=== PATIENT | male | born 1955 | race Caucasian/White ===

== ENCOUNTER 2017-01-05 13:51 | Outpatient (CLI) | payer MEDICARE | END 2017-01-05 13:52 | disposition home or self-care (01) | LOC: RT.S 13:51 → SWC 13:51 | PROVIDERS: ATTEND Nurse Practitioner Family | DX: I25.119 Atherosclerotic heart disease of native coronary artery with unspecified angina pectoris (principal) | CPT/HCPCS: 93005 ==

== ENCOUNTER 2017-01-08 08:07 | Outpatient (CLI) | payer MEDICARE | END 2017-01-08 08:08 | disposition home or self-care (01) | DX: I25.10 Atherosclerotic heart disease of native coronary artery without angina pectoris (principal); I20.9 Angina pectoris, unspecified ==

== ENCOUNTER 2017-01-11 10:46 | Outpatient (CLI) | payer MEDICARE | END 2017-01-11 10:47 | disposition home or self-care (01) | DX: D61.818 Other pancytopenia (principal); K70.30 Alcoholic cirrhosis of liver without ascites ==

== ENCOUNTER 2017-02-16 14:26 | Outpatient (CLI) | payer MEDICARE ==
[2017-02-16 14:42] LABS: BASOPHILS # (AUTO) 0.1 10^3/uL (0.0-0.1); EOSINOPHILS # (AUTO) 0.2 10^3/uL (0.0-0.7); HGB - HEMOGLOBIN 11.3 g/dL (14.0-18.0); LYMPHOCYTES # (AUTO) 0.8 10^3/uL (1.5-3.5); MONOCYTES # (AUTO) 0.5 10^3/uL (0.0-1.0); NEUTROPHILS % (AUTO) 74.2 %; RED CELL DISTRIBUTION WIDTH 14.4 % (12.0-15.0)
[2017-02-16 14:46] LABS: EOSINOPHILS % (AUTO) 2.9 %; HCT - HEMATOCRIT 31.6 % (42.0-52.0); LYMPHOCYTES % (AUTO) 14.1 %; MEAN CORPUSCULAR HEMOGLOBIN 35.1 pg (27.0-31.0); MEAN CORPUSCULAR HGB CONC 35.8 g/dL (32.0-36.0); MEAN PLATELET VOLUME 8.2 fL (7.4-11.4); MONOCYTES % (AUTO) 7.8 %; NEUTROPHILS # (AUTO) 4.4 10^3/uL (1.5-6.6); RED BLOOD COUNT 3.23 10^6/uL (4.70-6.10)
[2017-02-16 15:27] LABS: PLATELET ESTIMATE, MANUAL DECREASED (<130,000) (NORMAL); PLATELET MORPHOLOGY NORMAL APPEARANCE (NORMAL)
== END 2017-02-16 14:27 | disposition home or self-care (01) ==
LOC: LAB 14:26
PROVIDERS: ATTEND Internal Medicine
DX: D69.6 Thrombocytopenia, unspecified (principal)
CPT/HCPCS: 36415; 85025

== ENCOUNTER 2017-03-08 10:31 | Outpatient (CLI) | payer MEDICARE ==
--- NOTE | 2017-03-08 17:02 | Nuclear Medicine Report ---
EXAM: SINGLE-ISOTOPE PHARMACOLOGICAL STRESS TEST WITH ADENOSINE. SINGLE-ISOTOPE AND SAME-DAY REST/STRESS MY OCARDIAL PERFUSION SCANS WITH TOMOGRAPHIC IMAGING, QUANTITATIVE ANALYSIS, WALL MOTION ANALYSIS AND CA LCULATION OF EJECTION FRACTION. EXAM DATE: 03/08/2017 11:37 AM. CLINICAL HISTORY: Angina pectoris, coronary artery disease. COMPARISON: None. TECHNIQUE: Following the intravenous administration of 10.1 mCi of Tc-99m sestamibi, a rest myocardia l perfusion scan was done with tomography. Motion correction was applied when appropriate. After a delay of several hours on the same day, a pharmacological stress was performed with the infus ion of adenosine. According to protocol, 41.9 mCi of Tc-99m sestamibi was injected for stress myocard ial perfusion scan. Stress myocardial perfusion was done with tomography without attenuation correcti on. Motion correction was applied when appropriate. Gated tomographic images were obtained for wall motion analysis and computation of left ventricular ejection fraction. FINDINGS: There is a moderate severity, reversible perfusion defect involving the inferolateral segment from ba se to apex. Cardiac chamber size does not alter between rest and stress images. There is normal wall motion. The left ventricular end-diastolic volume is 147 cc. The left ventricular end-systolic volume is 62 c c. The left ventricular ejection fraction is calculated to be 58%. IMPRESSION: 1. Reversible perfusion defect involving the inferolateral wall from base to apex. 2. Normal left ventricular ejection fraction of 58%. 3. Normal segmental and global wall motion. 4. Normal left ventricular cavity size, no change with stress. [facility] Referring Provider Line: [phone] SITE ID: [id number]
[2017-03-08 19:03] VITALS: BP 128/66
--- NOTE | 2017-03-12 07:48 | CARDIAC PROCEDURE NOTE ---
DATE OF SERVICE: 03/08/2017 00:00:00 PRIMARY CARE PROVIDER: CHRISTIAN Black PROCEDURE: Pharmacologic stress test. PROCEDURE SYMPTOMS: Chest pain and dyspnea on exertion. CARDIAC RISK FACTORS INCLUDE: Known CAD and tobacco dependence. PREVIOUS CARDIAC PROCEDURES: Coronary angiograms and pharmaceutical stress test. CLINICAL HISTORY: A 61-year-old male with known coronary artery disease. INITIAL RESTING VITAL SIGNS: Blood pressure 128/66, heart rate 63, height 70 inches, weight 145 poun ds, BMI 20.7. PROCEDURE AND FINDINGS: Patient identity and date verified, consent signed. Pharmacologic str ess testing was performed with Lexiscan at a dose of 0.4 mg over 10 seconds. The heart increased to 87 beats per minute from the infusion, blood pressure response was normal during the stress procedure , and patient developed symptoms which included shortness of air and chest pain. Symptoms resolved s pontaneously in a few minutes. Resting ECG demonstrated normal sinus rhythm with no ST or T-wave namita nges. Maximum ST segment depression with stress was less than 0.5 and upsloping. There was a rare P VC. FINAL IMPRESSIONS 1. Negative electrocardiogram for ischemia in the setting of vasodilator stress. 2. Negative stress test for angina. 3. Rare PVC. DISCUSSION AND RECOMMENDATIONS: Await myocardial perfusion report. JOB #: [id number] EXT JOB #:[id number]
== END 2017-03-08 10:32 | disposition home or self-care (01) ==
LOC: DI 10:31
PROVIDERS: ATTEND Nurse Practitioner Family
DX: I25.119 Atherosclerotic heart disease of native coronary artery with unspecified angina pectoris (principal); I99.8 Other disorder of circulatory system
CPT/HCPCS: 78452; 93017; A9500

== ENCOUNTER 2018-01-26 03:04 | Outpatient (CLI) | payer MEDICARE | END 2018-01-26 03:05 | disposition critical access hospital (66) | LOC: EMS 03:04 | PROVIDERS: ATTEND Surgery | DX: R07.9 Chest pain, unspecified (principal) ==

== ENCOUNTER 2018-01-26 03:20 | Emergency (ER) | payer MEDICARE ==
--- NOTE | 2018-01-26 03:29 | ED Physician Documentation ---
PD HPI CHEST PAIN - Stated complaint Stated Complaint: CP - Chief complaint Chief Complaint: Cardiac - History obtained from History obtained from: Patient - History of Present Illness Timing - onset: Enter time (20:00), Today Timing - onset during: Light activity (playing pool) Timing - duration: Hours Timing - details: Gradual onset, Waxing and waning Pain level max: 10 Pain level now: 6 Quality: Pain Location: Substernal Radiation: Left upper extremity Improved by: Rest Worsened by: Exertion Associated symptoms: Shortness of air. No: Diaphoresis Recently seen: Not recently seen - Additional information Additional information: c/o chest pain. he has CAD history, and had stable angina requiring multiple doses of NTG daily up until April 2017 when he had coronary artery stents placed. (previous to this, he has had CABG). he says he did not need nitroglycerin again until a few weeks ago, when he gradually started having exertional chest pains again. These have become increasingly frequent and intense, and tonight at 8 PM, he developed severe midline chest pain radiating to LUE. Medics arrived, gave 325mg ASA and SLNTG x 3. after the third NTG, patient's pain had mostly subsided. Review of Systems Constitutional: reports: Reviewed and negative Eyes: reports: Reviewed and negative Ears: reports: Reviewed and negative Nose: reports: Reviewed and negative Throat: reports: Reviewed and negative Cardiac: reports: Chest pain / pressure. denies: Palpitations, Calf pain Respiratory: denies: Dyspnea, Cough GI: reports: Reviewed and negative : denies: Dysuria, Frequency Skin: reports: Reviewed and negative Musculoskeletal: reports: Reviewed and negative Neurologic: reports: Reviewed and negative PD PAST MEDICAL HISTORY - Past Medical History Cardiovascular: Hypertension, High cholesterol, Coronary artery disease, MT, Murmur Respiratory: COPD GI: Cirrhosis - Past Surgical History Ortho: Spine surgery Cardiovascular: CABG, Vascular surgery - Present Medications Home Medications: Ambulatory Orders Medication Instructions Recorded Confirmed Aspirin 81 mg PO DAILY 01/26/18 Carvedilol [Coreg] 01/26/18 Clopidogrel [Plavix] 50 mg PO DAILY 01/26/18 Losartan [Cozaar] 01/26/18 - Allergies Allergies/Adverse Reactions: Allergies Allergy/AdvReac Type Severity Reaction Status Date / Time morphine AdvReac Hives Verified 01/26/18 03:29 - Living Situation Living Arrangement: reports: At home - Social History Does the pt smoke?: No PD ED PE NORMAL - Vitals Vital signs reviewed: Yes - General General: Alert and oriented X 3, No acute distress, Well developed/nourished - Neck Neck: Supple, no meningeal sign - Cardiac Cardiac: RRR - Respiratory Respiratory: No respiratory distress, Clear bilaterally - Abdomen Abdomen: Soft, Non tender - Back Back: No CVA TTP - Derm Derm: Normal color, Warm and dry - Extremities Extremities: No edema - Neuro Neuro: Alert and oriented X 3 PD ED PE EXPANDED - Cardiac Cardiac: Murmur Present (2/6 ИРИНА) Results - Vitals Vitals: Vital Signs - 24 hr 01/26/18 01/26/18 01/26/18 03:26 03:30 03:33 Temperature 37.0 C Heart Rate 100 81 86 Respiratory 22 18 18 Rate Blood Pressure 145/63 H 174/85 H O2 Saturation 88 L 97 95 01/26/18 01/26/18 01/26/18 04:02 04:14 04:50 Temperature Heart Rate 95 93 100 Respiratory 28 H 27 H 27 H Rate Blood Pressure 175/101 H 177/94 H 171/95 H O2 Saturation 91 L 93 83 L 01/26/18 01/26/18 01/26/18 04:54 05:10 05:13 Temperature Heart Rate 99 Respiratory 20 Rate Blood Pressure 173/101 H 165/101 H O2 Saturation 87 L 88 L 01/26/18 05:14 Temperature Heart Rate Respiratory Rate Blood Pressure 153/94 H O2 Saturation 88 L Oxygen O2 Source Non-rebreather mask Oxygen Flow Rate 10 - EKG (time done) #1 Rate: Rate (enter#) (84) Rhythm: NSR [place]: Normal Intervals: Normal [place] QRS: LVH Ischemia: ST depression (II, III, aVF, V4-V6) #2 Rate: Rate (enter#) (95) Rhythm: NSR [place]: Normal Intervals: Normal AL QRS: LVH Ischemia: ST depression (V4-V6, inferior leads) Compare to prior EKG: Changed from prior EKG (more pronounced ST depressions) - Labs Labs: Laboratory Tests 01/26/18 01/26/18 01/26/18 03:30 03:30 03:30 WBC 8.7 RBC 3.71 L Hgb 12.6 L Hct 35.9 L MCV 96.7 H MCH 33.8 H MCHC 35.0 RDW 15.0 Plt Count 36 L MPV 7.6 Neut # (Auto) 7.2 H Lymph # (Auto) 0.7 L Ransom # (Auto) 0.6 Eos # (Auto) 0.2 Baso # (Auto) 0.1 Absolute Nucleated RBC 0.00 Nucleated RBC % 0.0 PT 13.2 H INR 1.2 APTT 36.1 H Sodium 137 Potassium 4.2 Chloride 106 Carbon Dioxide 23 Anion Gap 8.0 BUN 21 H Creatinine 1.3 H Estimated GFR (MDRD) 56 L Glucose 125 H Calcium 8.9 Total Bilirubin 0.7 AST 18 ALT 13 Alkaline Phosphatase 91 Troponin I Total Protein 7.8 Albumin 4.6 Globulin 3.2 Albumin/Globulin Ratio 1.4 Lipase 39 01/26/18 03:30 WBC RBC Hgb Hct MCV MCH MCHC RDW Plt Count MPV Neut # (Auto) Lymph # (Auto) Ransom # (Auto) Eos # (Auto) Baso # (Auto) Absolute Nucleated RBC Nucleated RBC % PT INR APTT Sodium Potassium Chloride Carbon Dioxide Anion Gap BUN Creatinine Estimated GFR (MDRD) Glucose Calcium Total Bilirubin AST ALT Alkaline Phosphatase Troponin I < 0.04 Total Protein Albumin Globulin Albumin/Globulin Ratio Lipase - Rads (name of study) chest xray Radiology: Prelim report reviewed, See rad report PD MEDICAL DECISION MAKING - ED course Complexity details: reviewed results, re-evaluated patient, considered differential, d/w patient ED course: pain worsened during ED stay without apparent inciting factor, severe at times. Pulse oximetry worsened despite increasing supplemental oxygen. D/W Dr. Clarke (ED [facility]), accepts for transfer to [facility] Departure - Departure Disposition: 02 Transfer Acute Care Hosp Clinical Impression: Chest pain Qualifiers: Chest pain type: unspecified Qualified Code(s): R07.9 - Chest pain, unspecified Condition: Serious Discharge Date/Time: 01/26/18 05:20
[2018-01-26] MEDS ORDERED: NITROGLYCERIN 2% PASTE TOP STA (03:32)
[2018-01-26 03:41] LABS: BASOPHILS # (AUTO) 0.1 10^3/uL (0.0-0.1); EOSINOPHILS # (AUTO) 0.2 10^3/uL (0.0-0.7); EOSINOPHILS % (AUTO) 1.9 %; HGB - HEMOGLOBIN 12.6 g/dL (14.0-18.0); LYMPHOCYTES # (AUTO) 0.7 10^3/uL (1.5-3.5); LYMPHOCYTES % (AUTO) 8.1 %; MEAN CORPUSCULAR HEMOGLOBIN 33.8 pg (27.0-31.0); MEAN CORPUSCULAR VOLUME 96.7 fL (80.0-94.0); MEAN PLATELET VOLUME 7.6 fL (7.4-11.4); MONOCYTES # (AUTO) 0.6 10^3/uL (0.0-1.0); MONOCYTES % (AUTO) 6.7 %; NEUTROPHILS # (AUTO) 7.2 10^3/uL (1.5-6.6); NEUTROPHILS % (AUTO) 82.3 %; PLT - PLATELET COUNT 36 10^3/uL (130-450); RED BLOOD COUNT 3.71 10^6/uL (4.70-6.10); WHITE BLOOD COUNT 8.7 x10^3/uL (4.8-10.8)
[2018-01-26 03:48] LABS: INR 1.2 (0.8-1.2); PT - PROTHROMBIN TIME 13.2 secs (9.9-12.6)
[2018-01-26] MEDS ORDERED: fentaNYL 100 MCG/2 ML VIAL IVP STA ×3 (03:50→04:41)
[2018-01-26 03:52] LABS: ALBUMIN 4.6 g/dL (3.2-5.5); ALBUMIN/GLOBULIN RATIO 1.4 (1.0-2.2); BILIRUBIN,TOTAL 0.7 mg/dL (0.2-1.0); CALCIUM 8.9 mg/dL (8.5-10.3); CREATININE 1.3 mg/dL (0.6-1.2); TOTAL PROTEIN 7.8 g/dL (6.7-8.2)
--- NOTE | 2018-01-26 03:58 | XRAY Preliminary Report ---
Exam: XR CHEST 1 VIEW X-RAY IMPRESSION: Mild CHF. [facility] SITE ID: [id number]
--- NOTE | 2018-01-26 03:59 | XRAY Report ---
EXAM: CHEST RADIOGRAPHY EXAM DATE: 01/26/2018 03:50 AM. CLINICAL HISTORY: Chest pain. COMPARISON: None. TECHNIQUE: 1 view. FINDINGS: Lungs/Pleura: Diffuse mild interstitial opacities. No large effusion. No gross pneumothorax. Mediastinum: Mild cardiomegaly. No mediastinal shift. Other: Post CABG. IMPRESSION: Mild CHF. [facility] Referring Provider Line: [phone] SITE ID: [id number]
[2018-01-26] MEDS ORDERED: fentaNYL 100 MCG/2 ML VIAL ONE (04:02)
[2018-01-26] MEDS ORDERED: ONDANSETRON 4 MG/2 ML VIAL IVP STA (04:36)
[2018-01-26] MEDS ORDERED: HEPARIN 25000UNITS/500ML (D5W) 25,000 UNIT/500 ML BAG IV SCH (05:00)
[2018-01-26] MEDS ORDERED: NITROGLYCERIN 50 MG/250 ML 50 MG/250 ML BOTTLE IV STA (05:02)
[2018-01-26] MEDS ORDERED: METOPROLOL 5 MG/5 ML VIAL IVP STA (05:03)
[2018-01-26] MEDS ORDERED: FUROSEMIDE 20 MG/2 ML VIAL IVP STA (05:03)
[2018-01-26 05:15] VITALS: BP 153/94
== END 2018-01-26 05:20 | disposition short-term general hospital (02) ==
LOC: ED 03:20
DX: R07.9 Chest pain, unspecified (principal); I10 Essential (primary) hypertension; I25.708 Atherosclerosis of coronary artery bypass graft(s), unspecified, with other forms of angina pectoris; I25.2 Old myocardial infarction; J44.9 Chronic obstructive pulmonary disease, unspecified; Z79.82 Long term (current) use of aspirin; Z95.5 Presence of coronary angioplasty implant and graft; Z79.02 Long term (current) use of antithrombotics/antiplatelets
CPT/HCPCS: 36415; 71045; 80053; 83690; 84484; 85025; 85610; 85730; 93005; 96365; 96375; 96376; 99285; A9270

== ENCOUNTER 2018-01-26 05:20 | Outpatient (CLI) | payer MEDICARE | END 2018-01-26 05:21 | disposition short-term general hospital (02) | LOC: EMS 05:20 | PROVIDERS: ATTEND Surgery | DX: R07.9 Chest pain, unspecified (principal) | CPT/HCPCS: A0425; A0427 ==

== ENCOUNTER 2018-12-16 08:00 | Outpatient (CLI) | payer MEDICARE ==
[2018-12-16 17:54] LABS: HB2 TOTAL 14.2 g/dL; HEMOGLOBIN A1C 0.44 g/dL
[2018-12-16 17:58] LABS: ALBUMIN 4.4 g/dL (3.2-5.5); ALBUMIN/GLOBULIN RATIO 1.4 (1.0-2.2); ALKALINE PHOSPHATASE 88 IU/L (42-121); ALT ALANINE AMINOTRANSFERASE 22 IU/L (10-60); AST ASPARTATE AMINOTRANSFERASE 23 IU/L (10-42); BILIRUBIN,TOTAL 0.5 mg/dL (0.2-1.0); BUN - BLOOD UREA NITROGEN 18 mg/dL (6-20); CARBON DIOXIDE - CO2 26 mmol/L (21-32); CHLORIDE 107 mmol/L (101-111); CHOL/HDL RATIO 2.5 (<5.0); CHOLESTEROL 86 mg/dL; CREATININE 1.4 mg/dL (0.6-1.2); GFR - MDRD 51 (>89); GLUCOSE 83 mg/dL (70-100); HDL CHOLESTEROL 34 mg/dL; LDL CHOLESTEROL,CALCULATED 44 mg/dL; LDL/HDL RATIO 1.3 (<3.6); SODIUM 138 mmol/L (135-145); TOTAL PROTEIN 7.6 g/dL (6.7-8.2); VLDL CHOLESTEROL 8 mg/dL
[2018-12-16 18:01] LABS: BASOPHILS # (AUTO) 0.1 10^3/uL (0.0-0.1); BASOPHILS % (AUTO) 1.5 %; EOSINOPHILS # (AUTO) 0.1 10^3/uL (0.0-0.7); EOSINOPHILS % (AUTO) 1.3 %; HGB - HEMOGLOBIN 13.1 g/dL (14.0-18.0); LYMPHOCYTES # (AUTO) 0.9 10^3/uL (1.5-3.5); LYMPHOCYTES % (AUTO) 14.8 %; MEAN CORPUSCULAR HEMOGLOBIN 34.1 pg (27.0-31.0); MEAN CORPUSCULAR HGB CONC 34.2 g/dL (32.0-36.0); MEAN CORPUSCULAR VOLUME 99.6 fL (80.0-94.0); MEAN PLATELET VOLUME 8.3 fL (7.4-11.4); MONOCYTES # (AUTO) 0.5 10^3/uL (0.0-1.0); MONOCYTES % (AUTO) 8.4 %; NEUTROPHILS # (AUTO) 4.7 10^3/uL (1.5-6.6); PLT - PLATELET COUNT 43 10^3/uL (130-450); RED BLOOD COUNT 3.85 10^6/uL (4.70-6.10); RED CELL DISTRIBUTION WIDTH 14.4 % (12.0-15.0); WHITE BLOOD COUNT 6.3 x10^3/uL (4.8-10.8)
== END 2018-12-16 23:59 | disposition home or self-care (01) ==
LOC: LAB.S 08:00
PROVIDERS: ATTEND Nurse Practitioner Family
DX: I10 Essential (primary) hypertension (principal); E78.5 Hyperlipidemia, unspecified; Z13.1 Encounter for screening for diabetes mellitus; Z12.5 Encounter for screening for malignant neoplasm of prostate
CPT/HCPCS: 36415; 80061; 83036; G0103; 80053; 83721; 84153; 84443; 85025

== ENCOUNTER 2019-10-29 22:13 | Outpatient (CLI) | payer MEDICARE | END 2019-10-29 22:14 | disposition short-term general hospital (02) | LOC: EMS 22:13 | PROVIDERS: ATTEND Surgery | DX: I21.4 Non-ST elevation (NSTEMI) myocardial infarction (principal) | CPT/HCPCS: A0425; A0426 ==

== ENCOUNTER 2020-04-16 12:05 | Outpatient (CLI) | payer MEDICARE ==
--- NOTE | 2020-04-16 15:45 | CT Report ---
PROCEDURE: LUMBAR SPINE WO INDICATIONS: CERVICAL RADICULOPATHY, LUMBAR RADICULOPATHY TECHNIQUE: Noncontrast 3 mm thick sections acquired from the T12 level to the sacrum. Sagittal and coronal refo rmats were constructed. For radiation dose reduction, the following was used: automated exposure co ntrol, adjustment of mA and/or kV according to patient size. COMPARISON: None. FINDINGS: Image quality: Excellent. Bones: There is slight anterior wedge deformity at L1 of indeterminate age. No suspicious osseous le sions are identified. There is trace retrolisthesis of L5 on S1. Nonbridging anterior osteophytes are most prominent at L4-5. Severe disc space narrowing with reactiv e endplate changes are present at L4-5, minimal L1-L2, mild L5-S1. Minimal disc bulge is present at L1-L2, mild L2-3, L3-4, L4-5 and minimal at L5-S1. There is minimal canal narrowing at L2-L3, mild L3-4, L4-5. Minimal to mild foraminal narrowing on the left is present at L1-L2, mild left L2-3, moderate bilateral L3-4, moderate to severe bilateral L4-5 particularly th rough the subarticular recess on the left, severe bilateral L5-S1 with slight appearance of nerve chasidy t flattening bilaterally. Multilevel facet hypertrophy is present. Soft tissues: Asymmetric prominence left renal atrophy is present. No retroperitoneal masses or haile shabnam. Visualized aorta is normal in caliber. Prominent vascular calcifications are present. IMPRESSION: 1. Multilevel disc bulges. 2. Mild to moderate spinal stenosis most notable at L3-4 and L4-5 secondary to disc bulge with contri buting effect of facet/ligamentum flavum arthropathy. 3. Multilevel foraminal narrowing most right L5-S1 secondary to retrolisthesis as well as facet arthr opathy. Reviewed by: Nely Mcdonald MD on 04/16/2020 3:43 PM PDT Approved by: Nely Mcdonald MD on 04/16/2020 3:43 PM PDT Station ID: [id number]
--- NOTE | 2020-04-16 16:07 | CT Report ---
PROCEDURE: CERVICAL SPINE WO INDICATIONS: CERVICAL RADICULOPATHY, LUMBAR RADICULOPATHY TECHNIQUE: Noncontrast 3 mm thick sections acquired from the skull base to the T4 level. Sagittal and coronal r eformats were then constructed. For radiation dose reduction, the following was used: automated exp osure control, adjustment of mA and/or kV according to patient size. COMPARISON: None. FINDINGS: Image quality: Excellent. Bones: No fractures or dislocations. Visualized superior ribs are intact. There is severe disc spa ce narrowing at C6-7, minimal to mild throughout the remainder of the cervical spine. Reactive endpla te changes are also present at C6-7. Minimal nonbridging anterior osteophytes are present within the cervical spine most prominent at C6-7. No suspicious osseous lesions. Mild disc bulges are present at C3-4, C4-5, C5-6, C6-7. Minimal to mild spinal stenosis is present at C3-4, C4-5, C5-6, minimal C6-7. Moderate bilateral foraminal narrowing is noted at C3-4, moderate to severe left C4-5, moderate right, minimal left C5-6, minimal to mild left C6-7. Multilevel uncoverte bral arthropathy is present. Soft tissues: Prevertebral soft tissues are normal in thickness. No paravertebral hematomas. No ap ical pneumothoraces. There is an incompletely visualized 11 mm nodule within the left upper lobe not fully included within the [id number]. No priors are available for comparison. IMPRESSION: 1. Multiple displaced posterior 2. Multilevel foraminal narrowing most severe at C4-5 secondary to uncovertebral arthropathy. 3. Partially visualized lung nodule as above. No priors are available for comparison. Recommend CT ch est for further evaluation. Reviewed by: Nely Mcdonald MD on 04/16/2020 4:05 PM PDT Approved by: Nely Mcdonald MD on 04/16/2020 4:05 PM PDT Station ID: [id number]
== END 2020-04-16 12:06 | disposition home or self-care (01) ==
LOC: DI 12:05
PROVIDERS: ATTEND Physical Medicine & Rehabilitation
DX: M50.31 Other cervical disc degeneration, high cervical region (principal); M48.02 Spinal stenosis, cervical region; M43.16 Spondylolisthesis, lumbar region; M51.36 Other intervertebral disc degeneration, lumbar region; M51.37 Other intervertebral disc degeneration, lumbosacral region; M48.061 Spinal stenosis, lumbar region without neurogenic claudication; M48.07 Spinal stenosis, lumbosacral region
CPT/HCPCS: 72125; 72131

== ENCOUNTER 2020-04-23 11:55 | Outpatient (CLI) | payer MEDICARE ==
[2020-04-23 12:25] LABS: BASOPHILS # (AUTO) 0.1 10^3/uL (0.0-0.1); BASOPHILS % (AUTO) 1.3 %; EOSINOPHILS # (AUTO) 0.1 10^3/uL (0.0-0.7); EOSINOPHILS % (AUTO) 2.2 %; HGB - HEMOGLOBIN 14.3 g/dL (14.0-18.0); LYMPHOCYTES # (AUTO) 0.9 10^3/uL (1.5-3.5); MEAN CORPUSCULAR HEMOGLOBIN 33.3 pg (27.0-31.0); MEAN CORPUSCULAR HGB CONC 33.8 g/dL (32.0-36.0); MEAN CORPUSCULAR VOLUME 98.6 fL (80.0-94.0); MEAN PLATELET VOLUME 11.3 fL (7.4-11.4); MONOCYTES # (AUTO) 0.4 10^3/uL (0.0-1.0); MONOCYTES % (AUTO) 7.7 %; NEUTROPHILS # (AUTO) 3.9 10^3/uL (1.5-6.6); NEUTROPHILS % (AUTO) 71.4 %; PLT - PLATELET COUNT 59 10^3/uL (130-450); RED BLOOD COUNT 4.29 10^6/uL (4.70-6.10); RED CELL DISTRIBUTION WIDTH 14.4 % (12.0-15.0); WHITE BLOOD COUNT 5.5 x10^3/uL (4.8-10.8)
[2020-04-23 12:27] LABS: ALBUMIN 4.9 g/dL (3.2-5.5); ALBUMIN/GLOBULIN RATIO 1.4 (1.0-2.2); ALKALINE PHOSPHATASE 81 IU/L (42-121); ALT ALANINE AMINOTRANSFERASE 20 IU/L (10-60); AST ASPARTATE AMINOTRANSFERASE 18 IU/L (10-42); BILIRUBIN,TOTAL 0.7 mg/dL (0.2-1.0); BUN - BLOOD UREA NITROGEN 27 mg/dL (6-20); CALCIUM 9.8 mg/dL (8.5-10.3); CARBON DIOXIDE - CO2 27 mmol/L (21-32); CHLORIDE 104 mmol/L (101-111); CHOL/HDL RATIO 3.3 (<5.0); CHOLESTEROL 107 mg/dL; CREATININE 1.3 mg/dL (0.6-1.2); GLUCOSE 100 mg/dL (70-100); HDL CHOLESTEROL 32 mg/dL; LDL CHOLESTEROL,CALCULATED 55 mg/dL; LDL/HDL RATIO 1.7 (<3.6); SODIUM 139 mmol/L (135-145); TOTAL PROTEIN 8.4 g/dL (6.7-8.2); VLDL CHOLESTEROL 20 mg/dL
== END 2020-04-23 11:56 | disposition home or self-care (01) ==
LOC: LAB 11:55
PROVIDERS: ATTEND Physician Assistant
DX: I10 Essential (primary) hypertension (principal)
CPT/HCPCS: 36415; 80053; 80061; 83721; 85025